=== PATIENT | male | born 1965 | race Caucasian/White ===

== ENCOUNTER 2023-10-24 01:48 | Inpatient (IN) ==
--- NOTE | 2023-10-24 02:09 | Emergency Department Note ---
Impression & Plan Unstable angina, Acute electrocardiography changes ED Provider Note Name: BRENNEN ARCE Age: 58 Sex: Male Arrives Via: Walk-In Informant: Patient ED Provider: Domo Shafer MD Chief Complaint: Chest pain Impression: As per impressions above Medical Decision Making: Pleasant 58-year-old gentleman with a history of hypertension arrives for evaluation of upper substernal chest discomfort without significant radiation but is associated with diaphoresis. He is not short of breath no palpitations no nausea, vomiting or other concerning signs or symptoms. No recent travel or leg swelling to be concern for PE. Chest pain is not consistent with dissection and chest x-ray is without widened mediastinum. Initial EKG concerning for T wave inversions anteriorly. Given aspirin and nitro on arrival with improvement in chest pain. Repeat EKG reveals new left bundle branch block. No previous EKGs for comparison. Discussed this emergently with interventional cardiology. Given patient's resolution of chest pain we will hold on [place] at this time. Initial troponin and other labs are reassuring. I discussed with hospitalist and plan to bring in for further cardiac evaluation. Given concerns for unstable angina and dynamic EKG changes heparin was started. Of note patient's oxygen started trending down some. This was discussed at length with hospitalist and they plan to further investigate. Triage/Nursing Notes reviewed by Me Differential:Cardiac ischemia, aortic dissection, pulmonary embolism, pneumothorax, pneumonia, pericarditis, myocarditis, esophageal rupture, GERD, cholecystitis, pancreatitis, musculoskeletal, as well as other pathologies. Vital Signs: reviewed and remarkable for HTN Interventions: Sublingual nitroglycerin, aspirin 324 mg p.o., heparin bolus and drip Labs:ED labs Reviewed by me and remarkable for no significant abnormalities Imagin view chest x-ray as per my interpretation no significant effusion, widened mediastinum nor infiltrate appreciated. EKG #1 as per my interpretation. Indication chest pain. Sinus bradycardia 50 bpm with QTc of 432. There is no ectopy. Anterior T wave inversions. No previous EKG for comparison. EKG #2. As per my interpretation. Indication dynamic changes on monitor. Normal sinus rhythm at 63 bpm QTc of 483. Left bundle branch block. No ectopy. When compared to EKG from earlier in stay left bundle branch is new. Cardiac/Tele Monitoring: Cardiac Monitoring: An Order was placed for continuous cardiac monitoring. The monitor shows a rate of 60 with a normal sinus rhythm. Consults:Dr Narayanan of interventional cardiology. Discussed case over phone reviewed EKG and plan for continued monitoring without emergent cath if patient remains pain-free. [facility] Discussed case with him and they will plan to bring inpatient for further management. Plan: Disposition:Hospitalization. Condition: Good History of Present Illness: Pleasant 58-year-old gentleman arrives for the evaluation of chest pain. Patient notes he felt fine when he went to bed this evening. Around 1:30 AM awoke with not feeling well. Associated with diaphoresis and a lightheadedness and a tight feeling in his upper mid chest. He notes he tried burping several times without improvement. Due to worsening discomfort he arrives to the ER for evaluation. Patient denies any radiation to his arms back neck or abdomen. He has no palpitations, nausea, vomiting, shortness of breath. He denies any recent travel or swelling in his legs. He said no recent fevers, chills, syncope. He denies any recent trauma injury. Patient is on blood pressure medication which was recently increased. Denies any familial history of cardiac disease nor he himself having cardiac disease. He does not smoke or use alcohol. He has never had any reflux issues previously. Past Medical History: Hypertension Home Medications: Olmesartan Allergies: No known drug allergies Vitals:Blood Pressure: 184/102, Pulse 54, RR 18, T 36.6C, O2 95% on RA Physical Exam: GENERAL: Patient is uncomfortable appearing and in mild distress. RESPIRATORY: No dyspnea. Clear to auscultation and equal bilaterally. CARDIOVASCULAR: Regular rate and rhythm.No murmur appreciated. GASTROINTESTINAL: Abdomen soft, non-tender, no peritonitis. EXTREMITIES: Normal motion all extremities, no cyanosis, no edema. NEUROLOGIC: Alert and oriented. No focal neurologic deficits appreciated SKIN: No rash, no jaundice, no diaphoresis. PSYCH: Appropriate GCS: 15 ED Course: Times/Reassessments: Patient has resolution of chest pain with nitroglycerin. EKG does show dynamic changes But he is now chest pain-free. Critical Care: I have personally spent 35 minutes of critical care time in the direct management of this patient. ACS with dynamic EKG changes, starting heparin and discussion with consultants determining if need for emergency heart cath. This was a life/limb threatening event. This 35 minutes is in excess of all separately billable procedures. Domo Shafer MD Past Med/Surg History Problem List (Updated 10/24/23 @ 04:32 by Pretty Perez DO) Chest pain Hypertension Left bundle branch block Acute electrocardiography changes (Acute) Unstable angina (Acute) Social History Smoking Status: Never smoker Preferred Language: Grenadian Feels Safe at Home: Yes Results & Data (ED) Vital Signs Vital Signs - 24 hr 10/24/23 01:52 10/24/23 01:58 10/24/23 01:59 Temperature 36.6 C Temperature Source Temporal Artery Scan Pulse Rate 54 L 52 L 54 L Pulse Rate [Apical] Pulse Rate from SpO2 Sensor Pulse Rhythm [Apical] Pulse Strength [Apical] Respiratory Rate 18 Respiratory Effort / Characteristics Respiratory Depth Respiratory Pattern Blood Pressure 184/102 H Blood Pressure [Left Arm] Blood Pressure Mean 129 Blood Pressure Mean [Left Arm] Blood Pressure Position [Left Arm] Pulse Oximetry 95 Oxygen Delivery Method Room Air Oxygen Flow Rate Sepsis Recent Fever Within 48 Hours No Sepsis New/Unexplained Change in Mental Status No Sepsis Action Taken by Nursing No Action Required Oxygen Flow Rate - Titration Pulse Oximetry Post Tiitration 10/24/23 02:00 10/24/23 02:02 10/24/23 02:12 Temperature Temperature Source Pulse Rate 52 L 55 L Pulse Rate [Apical] Pulse Rate from SpO2 Sensor 57 L Pulse Rhythm [Apical] Pulse Strength [Apical] Respiratory Rate 12 11 L Respiratory Effort / Characteristics Respiratory Depth Respiratory Pattern Blood Pressure 168/91 H Blood Pressure [Left Arm] Blood Pressure Mean 121 Blood Pressure Mean [Left Arm] Blood Pressure Position [Left Arm] Pulse Oximetry 94 Oxygen Delivery Method Oxygen Flow Rate Sepsis Recent Fever Within 48 Hours Sepsis New/Unexplained Change in Mental Status Sepsis Action Taken by Nursing Oxygen Flow Rate - Titration Pulse Oximetry Post Tiitration 10/24/23 02:27 10/24/23 02:31 10/24/23 02:33 Temperature Temperature Source Pulse Rate 74 Pulse Rate [Apical] 64 Pulse Rate from SpO2 Sensor 66 Pulse Rhythm [Apical] Pulse Strength [Apical] Respiratory Rate 20 Respiratory Effort / Characteristics Respiratory Depth Respiratory Pattern Blood Pressure 160/94 H Blood Pressure [Left Arm] 168/91 H Blood Pressure Mean 129 Blood Pressure Mean [Left Arm] 116 Blood Pressure Position [Left Arm] Pulse Oximetry 94 95 Oxygen Delivery Method Room Air Oxygen Flow Rate Sepsis Recent Fever Within 48 Hours Sepsis New/Unexplained Change in Mental Status Sepsis Action Taken by Nursing Oxygen Flow Rate - Titration Pulse Oximetry Post Tiitration 10/24/23 02:45 10/24/23 02:45 10/24/23 03:04 Temperature Temperature Source Pulse Rate 67 70 Pulse Rate [Apical] Pulse Rate from SpO2 Sensor Pulse Rhythm [Apical] Pulse Strength [Apical] Respiratory Rate Respiratory Effort / Characteristics Respiratory Depth Respiratory Pattern Blood Pressure Blood Pressure [Left Arm] Blood Pressure Mean Blood Pressure Mean [Left Arm] Blood Pressure Position [Left Arm] Pulse Oximetry 88 L 93 87 L Oxygen Delivery Method Room Air Nasal Cannula Room Air Oxygen Flow Rate 3 Sepsis Recent Fever Within 48 Hours Sepsis New/Unexplained Change in Mental Status Sepsis Action Taken by Nursing Oxygen Flow Rate - Titration 3 Pulse Oximetry Post Tiitration 97 10/24/23 04:00 10/24/23 05:00 Temperature Temperature Source Pulse Rate Pulse Rate [Apical] 59 L 73 Pulse Rate from SpO2 Sensor Pulse Rhythm [Apical] Regular Regular Pulse Strength [Apical] Normal Normal Respiratory Rate 18 18 Respiratory Effort / Characteristics Non-Labored Spontaneous Non-Labored Spontaneous Respiratory Depth Normal Normal Respiratory Pattern Regular Regular Blood Pressure Blood Pressure [Left Arm] 172/96 H 170/93 H Blood Pressure Mean Blood Pressure Mean [Left Arm] 121 118 Blood Pressure Position [Left Arm] Lying Lying Pulse Oximetry 97 94 Oxygen Delivery Method Nasal Cannula Room Air Oxygen Flow Rate 3 Sepsis Recent Fever Within 48 Hours Sepsis New/Unexplained Change in Mental Status Sepsis Action Taken by Nursing Oxygen Flow Rate - Titration Pulse Oximetry Post Tiitration Laboratory Data 10/24/23 02:01 10/24/23 02:01 Lab Results 10/24/23 10/24/23 10/24/23 Range/Units 02:00 02:01 03:55 WBC 6.80 (4.8-10.8) K/ul RBC 4.89 (4.70-6.10) M/uL Hgb 14.0 (14.0-18.0) g/dl Hct 42.6 (42.0-52.0) % MCV 87.1 (80.0-100.0) fL MCH 28.6 (25.0-34.0) pg MCHC 32.9 (32.0-36.0) g/dL RDW Std Deviation 42.7 (36.4-46.3) fL RDW Coeff of Cris 13.5 (11.5-14.5) % Plt Count 181 (130-400) K/uL MPV 10.7 (9.4-12.4) fL Immature Gran % (Auto) 0.1 % Neut % (Auto) 49.0 % Lymph % (Auto) 35.7 % [place] % (Auto) 13.5 % Eos % (Auto) 1.3 % Baso % (Auto) 0.4 % Neut # (Auto) 3.32 (1.40-6.50) K/uL Lymph # (Auto) 2.43 (1.20-3.40) K/uL [place] # (Auto) 0.92 H (0.11-0.59) K/uL Eos # (Auto) 0.09 (0.00-0.50) K/uL Baso # (Auto) 0.03 (0.00-0.20) K/uL Immature Gran # (Auto) 0.01 (0.01-0.20) K/uL PT 10.6 (9.0-12.0) Seconds INR 1.0 (0.9-1.1) APTT 26 (21-31) Seconds PTT Ratio 1.0 D-Dimer 820 H* (0-500) ug/L FEU Sodium 140 (136-145) mmol/L Potassium 3.6 (3.5-5.1) mmol/L Chloride 104 (98-107) mmol/L Carbon Dioxide 30 (21-32) mmol/L Anion Gap 6 (3-11) BUN 23 (6-23) mg/dl Creatinine 1.01 (0.6-1.4) mg/dl Est Cr Clr Drug Dosing 98.0 ml/min Est GFR ( Amer) 93.9 ml/min Est GFR (Non-Af Amer) 81.0 ml/min BUN/Creatinine Ratio 22.8 H (10-20) Glucose 112 H (70-99(Fasting)) mg/dl Calcium 9.1 (8.6-10.3) mg/dl Magnesium 2.2 (1.7-2.4) mg/dl Total Bilirubin 0.4 (0.2-1.0) mg/dl AST 26 (13-39) U/L ALT 24 (7-52) U/L Alkaline Phosphatase 57 (34-104) U/L Troponin I High Sens 11.6 138.8 H* D (0-20) pg/ml Total Protein 7.1 (6.0-8.3) gm/dl Albumin 4.4 (3.4-5.0) gm/dl Globulin 2.7 (2.5-4.0) gm/dl Albumin/Globulin Ratio 1.6 (0.9-2) Lipase 29 (11-82) U/L Lyme Disease Screen Negative (Negative) Administered Medications Heparin Sodium/Dextrose (Heparin Sodium/Dextrose) 25,000 units in 500 mls @ 20 mls/hr IV .Q24H [facility]; Protocol Stop: 11/23/23 03:44 Last Admin: 10/24/23 03:53 Dose: 1,000 units/hr, 20 mls/hr Documented By: SMILEY Co-signed By: AB Discontinued Medications Aspirin (Aspirin 81 Mg Chew) 324 mg PO NOW STA Stop: 10/24/23 02:07 Last Admin: 10/24/23 02:10 Dose: 324 mg Documented By: AB Heparin Sodium (Porcine) (Heparin Sod (Porcine) 1000 Unit/Ml) 4,000 units IV NOW ONE Stop: 10/24/23 03:46 Last Admin: 10/24/23 03:39 Dose: 4,000 units Documented By: SMILEY Co-signed By: AB Sodium Chloride (Nss) 1,000 mls @ 999 mls/hr IV .Q1H1M STA Stop: 10/24/23 02:57 Last Infusion: 10/24/23 03:49 Dose: Infused Documented By: Admin: 10/24/23 02:14 Dose: 999 mls/hr Documented By: AB Potassium Chloride (K [place] / Wtr) 10 meq in 100 mls @ 100 mls/hr IV ONE ONE Stop: 10/24/23 04:53 Last Admin: 10/24/23 05:01 Dose: 100 mls/hr Documented By: SMILEY Ioversol (Optiray 320 125ml) 125 ml IV ONCE ONE Stop: 10/24/23 05:56 Last Admin: 10/24/23 05:56 Dose: 118 ml Documented By: MARIO Nitroglycerin (Nitroglycerin Sl 0.4 Mg/Tab Tab) 0.4 mg SL NOW STA Stop: 10/24/23 02:07 Last Admin: 10/24/23 02:11 Dose: 0.4 mg Documented By: MED Nitroglycerin (Nitroglycerin Sl 0.4 Mg/Tab Tab) 0.4 mg SL NOW STA Stop: 10/24/23 02:54 Last Admin: 10/24/23 02:40 Dose: 0.4 mg Documented By: MED Discharge Plan Visit Data Chief Complaint: Chest Pain Stated Complaint: CHEST PAIN, RECENTLY CHANGED MEDICATIONS ED Provider: Domo Shafer Discharge Problem: Unstable angina, Acute electrocardiography changes Patient Disposition: Admitted As Inpatient Discharge Instructions Interventions: ED Discharge Assessment Last Done: 10/24/23 05:40 Forms Stand Alone Forms: My [facility] Referrals Referrals: PCP,NO [Physician] -
[2023-10-24] MEDS: ASPIRIN 81 MG CHEW PO STA (02:10)
[2023-10-24] MEDS: NITROGLYCERIN SL 0.4 MG/TAB TAB SL STA ×2 (02:11→02:40)
[2023-10-24] MEDS: SODIUM CHLORIDE 0.9% 1,000 ML IV STA (02:14)
[2023-10-24 02:30] LABS: Basophils # (auto) 0.03 K/uL (0.00-0.20); Basophils % (auto) 0.4 %; Eosinophils # (auto) 0.09 K/uL (0.00-0.50); Eosinophils % (auto) 1.3 %; Hematocrit (blood only) 42.6 % (42.0-52.0); Immature Granulocytes # (auto) 0.01 K/uL (0.01-0.20); Immature Granulocytes % (auto) 0.1 %; Lymphocytes # (auto) 2.43 K/uL (1.20-3.40); Lymphocytes % (auto) 35.7 %; Mean Corpuscular Hemoglobin 28.6 pg (25.0-34.0); Mean Corpuscular Hgb Conc 32.9 g/dL (32.0-36.0); Mean Corpuscular Volume 87.1 fL (80.0-100.0); Mean Platelet Volume 10.7 fL (9.4-12.4); Monocytes # (auto) 0.92 K/uL (0.11-0.59); Monocytes % (auto) 13.5 %; Neutrophils # (auto) 3.32 K/uL (1.40-6.50); Platelet Count 181 K/uL (130-400); RDW Coefficient of Variation 13.5 % (11.5-14.5); RDW Standard Deviation 42.7 fL (36.4-46.3); Red Blood Count 4.89 M/uL (4.70-6.10)
[2023-10-24 02:37] LABS: Partial Thromboplastin Time 26 Seconds (21-31); Prothrombin Time 10.6 Seconds (9.0-12.0)
[2023-10-24 02:50] LABS: Albumin Globulin Ratio 1.6 (0.9-2); Albumin Level 4.4 gm/dl (3.4-5.0); BUN Creatinine Ratio 22.8 (10-20); Bilirubin,Total 0.4 mg/dl (0.2-1.0); Calcium 9.1 mg/dl (8.6-10.3); Est GFR (African American) 93.9 ml/min; Globulin 2.7 gm/dl (2.5-4.0); Potassium 3.6 mmol/L (3.5-5.1); Total Protein 7.1 gm/dl (6.0-8.3)
[2023-10-24 02:56] LABS: Troponin I High Sensitivity 11.6 pg/ml (0-20)
[2023-10-24] MEDS ORDERED: HEPARIN SOD (PORCINE) 1000 UNIT/ML IV ONE (03:19)
[2023-10-24] MEDS ORDERED: HEPARIN SODIUM/DEXTROSE 25,000 UNITS/500 ML BAG IV SCH (03:30)
[2023-10-24] MEDS: HEPARIN SOD (PORCINE) 1000 UNIT/ML IV ONE ×2 (03:39→12:07)
[2023-10-24 03:53] LABS: Magnesium 2.2 mg/dl (1.7-2.4)
[2023-10-24] MEDS: HEPARIN SODIUM/DEXTROSE 25,000 UNITS/500 ML BAG IV SCH (03:53)
[2023-10-24] MEDS ORDERED: ACETAMINOPHEN 325 MG TAB PO PRN (04:06)
[2023-10-24] MEDS ORDERED: ONDANSETRON INJ 2 MG/ML 2 ML VIAL IV PRN (04:06)
[2023-10-24] MEDS ORDERED: MELATONIN 3 MG TAB PO PRN (04:06)
--- NOTE | 2023-10-24 04:10 | History & Physical Report ---
Date of Service October 24, 2023 Assessment & Plan (1) Chest pain: Plan: Pt is a 58 yo male with PMH of HTN presenting d/t chest pain. Chest pain - pt with sudden onset of chest pain during sleep; no hx of previous NH/ACS - first EKG showing NSR w/ mild ST segment elevations in the inferior leads and T wave inversions in anterolateral leads; repeat EKGs showing LBBB and resolution of ST/T changes - pt has hx of LBBB on prior EKGs including one from outpatient records 09/2023 and per pt back in 2021 prior to a colonoscopy - ER discussed case with interventional cardiology who decided to hold on cath d/t resolution of pt's chest pain - CXR WNL - lab work significant for no leukocytosis, Hgb 14, plts 181, K 3.6, Cr 1.01, and lyme screen neg - D dimer elevated to 820; CTA PE protocol ordered - trop increased from 11 to 138; continue to trend trop to peak - heparin drip started in ED; continue upon admission - cardio consulted for further eval/possible intervention depending on symptom progression HTN - continue formulary equivalent losartan 100 mg daily of pt's home med (olmesartan 40 mg daily) - per outpatient notes, pt also started on amlodipine 5 mg daily; however, pt is not aware of this medication - recommend clarification concerning pt's BP regimen Diet: NPO until further eval by cardio in case of urgent cath Code: full VTE ppx: heparin drip Dispo: admit to PCU (2) Left bundle branch block: (3) Hypertension: History of Present Illness Chief Complaint: chest pain Primary Care Provider: Mone Saleh DO Pt is a 58 yo male with PMH of HTN presenting d/t chest pain. Pt notes he awoke from sleep feeling feverish and with chest pain. He describes the chest pain as being central and near the bottom of this throat. It did not radiate anywhere and came with no associated symptoms (SOB, N/V, abdominal pain, lightheadedness/dizziness). He waited a few minutes to see if it would pass and when it didn't he decided to come to the ER. He has been following with his PCP for HTN and his BP medication was recently changed (increased from 20mg olmesartan to 40mg). He was instructed by his PCP to come to the ER if he experienced any chest pain. He has never had chest pain before. He denies any heart history aside from a known LBBB. He does note that both his father and a cousin on his father's side have had abdominal aortic aneurysms. However, he notes they both smoked and he does not. In the ER, pt was given aspirin 324mg, nitro x2, 1L NS, and started on a heparin drip. His chest pain resolved and has not recurred since receiving these medications. Allergies Allergy/AdvReac Type Severity Reaction Status Date / Time No Known Allergies Allergy Unverified 10/24/23 06:31 Past Med/Surg History Problem List (Updated 10/24/23 @ 04:32 by Pretty Perez, ) Chest pain Hypertension Left bundle branch block Acute electrocardiography changes (Acute) Unstable angina (Acute) Social History Smoking Status: Never smoker Preferred Language: Brazilian Feels Safe at Home: Yes Review of Systems Review of Systems: As per HPI Physical Exam Constitutional: NAD, vitals WNL aside from hypertension. Respiratory: CTA bilaterally. Non labored breathing. No rhonchi, wheezing, or crackles. Cardiovascular: RRR. 2/6 systolic murmur noted. No LE edema. Gastrointestinal (Abdomen): Nontender, +BS. No masses noted. Skin: No rashes or skin lesions noted. Neurologic: Sensation grossly intact. No FND appreciated. Psychiatric: Speech of normal pace and content. Mood and affect congruent. Results & Data Results & Data Vital Signs (Past 12 Hours) Vital Signs Temp Pulse Pulse Resp BP BP Pulse Ox 10/24/23 03:04 87 L 10/24/23 02:45 70 93 10/24/23 02:45 67 88 L 10/24/23 02:33 160/94 H 10/24/23 02:31 64 20 168/91 H 95 10/24/23 02:27 74 94 10/24/23 02:12 55 L 11 L 94 10/24/23 02:02 168/91 H 10/24/23 02:00 52 L 12 10/24/23 01:59 54 L 10/24/23 01:58 52 L 10/24/23 01:52 36.6 C 54 L 18 184/102 H 95 O2 Del Method O2 Flow Rate 10/24/23 03:04 Room Air 10/24/23 02:45 Nasal Cannula 3 10/24/23 02:45 Room Air 10/24/23 02:33 10/24/23 02:31 Room Air 10/24/23 02:27 10/24/23 02:12 10/24/23 02:02 10/24/23 02:00 10/24/23 01:59 10/24/23 01:58 10/24/23 01:52 Room Air Supervising Physician Co-Signing Physician Notes Attending addendum: I have physically seen this patient, have supervised the medical residents activities, and agree with the H&P unless as otherwise noted. Assessment and Plan: Chest pain/elevated troponin/NSTEMI/dynamic EKG changes- Patient was referred to the emergency department from outpatient office with report of EKG abnormality Upon arrival to the emergency department, initial EKG showed [address] segment elevation in lead III, and T wave inversions in anterior lateral chest leads. With this EKG he had symptoms of chest pressure. Patient was captured on rhythm strip to convert from normal sinus rhythm with normal QRS complex to normal sinus rhythm with left bundle branch block rate controlled. With this EKG he had no symptoms Patient remained in normal sinus rhythm with left bundle branch block the remainder of the time in the ED Recommendation was to start patient on heparin drip protocol with bolus, which was started His initial troponin was 11.6, and follow-up was 138.8. D-dimer was elevated at 820, and the patient is being sent for CTA chest, and CT aorta study due to family history of aortic aneurysm. Potassium was 3.6, and will be given potassium chloride 10 mill equivalent IV rider x 1 Lyme test is negative Review of EKGs from [facility] PCP reveal left bundle branch block is present at least back through September 2023, and possibly 04/29/2021 Patient's lowest pulse ox was 87% on room air, and increased to 94% on 2 L nasal cannula oxygen Patient reports that his home olmesartan was increased from 20 to 40 mg at the outpatient office today. There is also note that amlodipine 5 mg was added, however, patient does not have this medication Interventional cardiology Dr. Narayanan is aware, and will see the patient in the a.m., unless there is an acute need to be seen sooner Resident Activity Tracking Resident Involvement: Resident Care Provided Care Provided: Adult [facility] Medicine
[2023-10-24 04:44] LABS: D Dimer 820 ug/L FEU (0-500)
[2023-10-24] MEDS: POTASSIUM CHLORIDE / WTR 10 MEQ/100 ML PLCT IV ONE (05:01)
[2023-10-24] MEDS: OPTIRAY 320 125ml IV ONE (05:56)
[2023-10-24] MEDS: Patient's ALLERGY Info needs ENTERED STA (06:31)
--- NOTE | 2023-10-24 06:38 | Billing Data ---
Date of Service October 24, 2023 Coding Level of Care Code 33265 INT INP/OBS CARE
[2023-10-24] MEDS: Heparin IV Adult Wt-Based Low-Dose w/ INITIAL Bolus Protocol IV STA (06:53)
--- NOTE | 2023-10-24 06:59 | CT Scan Report ---
CT angio chest PE protocol CLINICAL HISTORY: PE TECHNIQUE: Multidetector row helical CT of the chest was performed with angiographic protocol. Lu l and sagittal reformations were obtained. Coronal and sagittal MIPS were obtained from the axial papa a set and were submitted for review. Automated dose lowering techniques and/or adjustment according to patient size were utilized for this exam. CT DOSE: 916.25 mGy.cm Comparison: Comparison is made to chest radiograph 10/24/2023 FINDINGS: Lungs and pleura: There is a 6 mm nodule in the right upper lobe (series 4 image 105). Heart and pericardium: Heart size is normal. No pericardial effusion. Vessels: No evidence of pulmonary embolism. Mediastinum and elmer: Unremarkable. Chest wall and lower neck: Unremarkable. Abdomen: Unremarkable. Bones: Mild degenerative changes are seen in the spine. IMPRESSION: No acute abnormality and in particular no evidence of pulmonary embolus. ACT 112: Negative or not required by law. Electronically signed by: Ramy Forman M.D. 10/24/2023 6:57 AM
--- NOTE | 2023-10-24 07:39 | XRay Report ---
XR chest 1V portable HISTORY: Chest pain, nonspecific COMPARISON: None. FINDINGS: No pneumothorax. No pleural effusions. The cardiac silhouette is mildly enlarged. The lungs are clear. No evidence for pulmonary edema. No acute fractures. IMPRESSION: Mild cardiomegaly. Otherwise, no acute process within the chest. ACT 112: Negative or not required by law. Electronically signed by: Olaf Callahan M.D. 10/24/2023 7:37 AM
[2023-10-24] MEDS: LOSARTAN POTASSIUM 50 MG TAB PO SCH (08:22)
--- NOTE | 2023-10-24 08:50 | Cardiology Consultation ---
Date of Consultation October 24, 2023 Assessment & Plan (1) ACS (acute coronary syndrome): Presentation consistent with high risk ACS and recommend proceeding with cardiac catheterization and possible PCI later today. Please keep NPO. No apparent contraindications to procedure. Discussed risks, benefits, alternatives of procedure with patient and they are willing to proceed. Patient on heparin infusion. Will load with ticagrelor 180 mg. Continue home losartan. Will start statin. Echocardiogram this morning. Further recommendations pending findings of coronary angiography. History of Present Illness Attending Physician: Ramu Bell DO History of Present Illness Mr. Alex is a very pleasant 58-year-old man here with acute chest pain, elevated troponin and ECG concerning for high risk ACS. No prior cardiac history. Cardiac risk factors include hypertension, suspected sleep apnea. Chest pain began approximately 1 AM last night waking from sleep. Presented to [facility] ED approximately 30 minutes later. Describes substernal pain with associated nausea. Denies similar symptoms in the past. Initial ECG showed sinus rhythm with anterior T wave inversions. Subsequent ECG showed new left bundle branch block. Hypertensive now on arrival to the 180s. Ongoing chest pain on arrival but was given sublingual nitroglycerin with resolution of chest pain. Chest pain since that time has not recurred. This morning feeling well with no complaints. HS TropI initially 11, up to 138. Chest CTA negative for PE. On my review minimal coronary calcification. Family history: Father and grandfather both had AAA's, were active smokers. No history of premature CAD. Social history: Non-smoker. . 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 Allergies Allergy/AdvReac Type Severity Reaction Status Date / Time No Known Allergies Allergy Unverified 10/24/23 06:31 Patient History Social History Smoking Status: Never smoker Hx Alcohol Use: No Hx Substance Use: No Preferred Language: Hungarian Communication Ability: Effective Administration Vice President Required: No Beliefs That Will Affect Care: None Current Living Situation: Alone Other Information That Helps Us Care for You: No Feels Safe at Home: Yes Safety Concerns: Feels Safe At This Time Assistive Devices: None Review of Systems Review of Systems: All systems reviewed & are unremarkable except as noted in HPI & below Physical Exam Physical Exam: General: Comfortable HEENT: Sclerae anicteric Lungs: Clear to auscultation bilaterally, no crackles or wheezes Cardiac: Regular rate and rhythm, 2 out of 6 systolic ejection murmur Vascular: 2+ radial Abdomen: Soft, nontender Extremities: Well perfused, no peripheral edema Neuro: Nonfocal Psych: Alert orient x3, normal affect and mood Results & Data Vital Signs (Past 12 Hours) Vital Signs Temp Pulse Pulse Resp BP BP BP 10/24/23 07:06 98.1 F 67 20 157/92 H 10/24/23 06:00 10/24/23 06:00 98.1 F 67 16 158/85 H 10/24/23 05:00 73 18 170/93 H 10/24/23 04:00 59 L 18 172/96 H 10/24/23 03:04 10/24/23 02:45 70 10/24/23 02:45 67 10/24/23 02:33 160/94 H 10/24/23 02:31 64 20 168/91 H 10/24/23 02:27 74 10/24/23 02:12 55 L 11 L 10/24/23 02:02 168/91 H 10/24/23 02:00 52 L 12 10/24/23 01:59 54 L 10/24/23 01:58 52 L 10/24/23 01:52 97.9 F 54 L 18 184/102 H Pulse Ox O2 Del Method O2 Flow Rate 10/24/23 07:06 92 Room Air 10/24/23 06:00 Room Air 10/24/23 06:00 95 Room Air 10/24/23 05:00 94 Room Air 10/24/23 04:00 97 Nasal Cannula 3 10/24/23 03:04 87 L Room Air 10/24/23 02:45 93 Nasal Cannula 3 10/24/23 02:45 88 L Room Air 10/24/23 02:33 10/24/23 02:31 95 Room Air 10/24/23 02:27 94 10/24/23 02:12 94 10/24/23 02:02 10/24/23 02:00 10/24/23 01:59 10/24/23 01:58 10/24/23 01:52 95 Room Air PG Care Time/CCT Total # of Minutes Spent Total Time Spent with Patient: Total time spent is greater than 50% in coordination of care (as documented) at patient's floor/unit and/or counseling patient: Coding Level of Care Code 84764 IN/OBS CONSULT LVL 4,60M Diagnoses ACS (acute coronary syndrome) I24.9
[2023-10-24] MEDS ORDERED: CLOPIDOGREL BISULFATE 75 MG TAB PO SCH (09:00)
[2023-10-24] MEDS: TICAGRELOR 90 MG TAB PO ONE (09:32)
[2023-10-24] MEDS: ASPIRIN 81 MG ECTAB PO SCH (09:32)
--- OUTSIDE RECORDS SUMMARY | 2023-10-24 10:51 | External Medical Summary | Continuity of Care Document ---
Author Name Unknown Organization [facility] [address] Address [address] [place], [place] [id number] Care Team Providers Care Armor Officer Name Role Phone Markell Arechiga Primary Care Physician [phone] Encounter [facility] [id number] Date(s): 09/26/23 - 09/26/[address] [facility] [address] [facility] [address] [facility], [facility] [address] [place], [place] [phone] Encounter Diagnosis Encounter for screening for malignant neoplasm of prostate(Final) - Essential (primary) hypertension(Final) - Obstructive sleep apnea (adult) (pediatric)(Final) - Body mass index [BMI] 35.0-35.9, adult(Final) - Discharge Disposition: Home or Self Care Attending Physician: DO Saleh Allison B Referring Physician: DO Saleh Allison B Allergies, Adverse Reactions, Alerts No Known Allergies Immunizations Given and Recorded Vaccine Date Status Refusal Reason zoster vaccine, inactivated 02/27/22 Recorded SARS-CoV-2 mRNA-1273 (6y+ bivalent) 02/27/22 Recor ded SARS-CoV-2 (COVID-19) mRNA-1273 vaccine 1 07/13/21 Recorded SARS-CoV-2 (COVID-19) mRNA-1273 vaccine 2 01/31/21 Recorded SARS-CoV-2 (COVID-19) mRNA-1273 vaccine 07/13/20 R ecorded SARS-CoV-2 (COVID-19) mRNA-1273 vaccine 06/15/20 R ecorded influenza virus vaccine, inactivated 12/18/19 Tavon rded influenza virus vaccine, inactivated 01/09/19 Tavon rded 1Result Comment: 2021-07-16: Historical information-source unspecified 2Result Comment: 2021-02-02: Historical information-source unspecified Medications [facility] Start: 05/26/14 8:36:00 AM EDT, 1 tab, PO, Daily Start Date: 05/26/14 Status: Ordered Chondroitin-Glucosamine Start: 05/26/14 8:37:00 AM EDT, 1 cap, PO, Daily Start Date: 05/26/14 Status: Ordered Nature's Bounty Red Krill Oil Start: 05/26/14 8:37:00 AM EDT, 1,000 mg =, PO, bid Start Date: 05/26/14 Status: Ordered olmesartan 20 mg oral tablet Start: 09/25/23 9:38:00 AM EDT, 1 tab, PO, Daily, Disp# 30 tab, Refills: 1, Pharmacy: [id number] Start Date: 09/25/23 Stop Date: 11/24/23 Status: Ordered Osteo Bi-Flex Start: 05/26/14 8:37:00 AM EDT Start Date: 05/26/14 Status: Ordered Problem List Condition Confirmation Course Effective Dates Status Health St atus Informant Witnessed apneic spells Confirmed Active Family history of aortic aneurysm Confirmed Active Murmur Confirmed Active HTN (hypertension) Confirmed Active LBBB (left bundle branch block) Confirmed Active Lesion of nose Confirmed Active Body mass index [BMI] 35.0-35.9, adult Confirmed Active EMILY (obstructive sleep apnea) Confirmed Active Screening PSA (prostate specific antigen) Confirmed Active Colon polyp Confirmed Active Snoring Confirmed Active Procedures Procedure Date Related Diagnosis Body Site Status Arthroscopy of knee 01/26/15 Compl eted Colonoscopy 1 04/13/13 Completed Fracture care Completed Left ankle Completed 1next exam due in 3 years Results Laboratory List Name Date Complete Blood Count w Differential (CBC ,DIFFH) 09/26/23 Comprehensive Metabolic Panel (COMP META B PANEL) 09/26/23 Hemoglobin A1C (HEMOGLOBIN, A1C) 09/26/23 Lipid Profile (LIPOPROTEINS) 09/26/23 Microalbumin, Urine, Random (MICROALBUMI N, RD UR) 09/26/23 Prostate Specific Antigen (PSA, TOTAL) Thyroid Stimulating Hormone (TSH) 4 Urine Analysis w/ Reflexed Microscopic. (URINE W/REFLEX MICR) 09/26/23 Most recent to oldest [Reference Range]: 1 eGFR CKD-EPI [>60 mL/min/1.73 m2] 84 mL/ min/1.73 m2 1 (09/26/23 7: AM) Estimated Average Glucose 117 mg/dL 2 (09/26/23 7: AM) Non-HDL 167 mg/dL 3 (09/26/23 7:22 AM) PSA, Total [<3.51 ng/mL] 0.31 ng/mL (09/26/23 7: AM) Estimated CrCl 109.06 mL/min (09/26/23 11:20 AM) MPV [9.0-12.2 fL] 11.0 fL (09/26/23 7: AM) Immature Gran% 0.6 % (09/26/23 7: AM) Neut% 52.5 % (09/26/23 7: AM) Lymph% 34.5 % (09/26/23 7: AM) [place]% 10.5 % (09/26/23 7: AM) Baso% 0.6 % (09/26/23 7: AM) Eos% 1.3 % (09/26/23 7:22 AM) Immat Gran, Abs [0-0.4 K/uL] 0.03 K/uL (09/26/23 7: AM) Neut, Abs [2.0-7.7 K/uL] 2.81 K/uL (09/26/23 7:22 AM) Lymph, Abs [1.0-3.4 K/uL] 1.84 K/uL (09/26/23 7:22 AM) [place], Abs [0-1.0 K/uL] 0.56 K/uL (09/26/23 7:22 AM) Baso, Abs [0-0.1 K/uL] 0.03 K/uL (09/26/23 7:22 AM) Eos, Abs [0-0.5 K/uL] 0.07 K/uL (09/26/23 7: AM) Type of Diff: AUTO *Unknown* (09/26/23 7: AM) RDW [11.5-14.2 %] 13.8 % (09/26/23 7: AM) Micro Alb (u) [<2.00 mg/dL] 1.87 mg/dL 4 (09/26/23 7: AM) Anion Gap [5-14 mmol/L] 7 mmol/L (09/26/23 7: AM) Alb [3.5-5.0 g/dL] 4.5 g/dL (09/26/23 7: AM) Alk Phos [38-126 unit/L] 59 unit/L (09/26/23 AM) ALT [<50 unit/L] 37 unit/L (09/26/23 7: AM) AST [15-46 unit/L] 49 unit/L *HI* (09/26/23 AM) Bili (u) [NEG] NEGATIVE *Unknown* (09/26/23 AM) BUN [7-20 mg/dL] 28 mg/dL *HI* (09/26/23: AM) Ca [8.4-10.2 mg/dL] 8.8 mg/dL (09/26/23: AM) Chol/HDL 5 (09/26/23: AM) Chol [125-200 mg/dL] 210 mg/dL *HI* (09/26/23: AM) Cl- [96-107 mmol/L] 108 mmol/L *HI* (09/26/23 AM) HCO3 [22-30 mmol/L] 26 mmol/L (09/26/23: AM) Cret [0.70-1.30 mg/dL] 1.03 mg/dL (09/26/23: AM) HbA1c [4.0-6.0 %] 5.7 % (09/26/23: AM) Glu [74-106 mg/dL] 95 mg/dL (09/26/23: AM) Hct [39-48 %] 45.1 % (09/26/23: AM) HDL [>35 mg/dL] 43 mg/dL (09/26/23 7: AM) Hgb [13.0-17.0 g/dL] 14.7 g/dL (09/26/23 AM) K [3.5-5.1 mmol/L] 4.1 mmol/L (09/26/23 7:22 AM) Ketones [NEG mg/dL] NEGATIVE mg/dL (09/26/23 AM) LDL Chol, Calculated [50-130 mg/dL] 150 mg/dL *HI* (09/26/23 AM) Leuk Est [NEG] NEGATIVE 5 *Unknown* (09/26/23 AM) Micro Alb Ratio [<20 ug/mg cret] 12 ug/m g cret (09/26/23: AM) MCH [28-33 pg] 28.9 pg (09/26/23: AM) MCHC [32-36 g/dL] 32.6 g/dL (09/26/23: AM) MCV [81-96 fL] 88.8 fL (09/26/23: AM) Na [137-145 mmol/L] 141 mmol/L (09/26/23 AM) Nitrite (u) [NEG] NEGATIVE *Unknown* (09/26/23 AM) Plts [150-350 K/uL] 177 K/uL (09/26/23: AM) RBC [4.40-5.60 M/uL] 5.08 M/uL (09/26/23: AM) T Bili [0.2-1.3 mg/dL] 0.7 mg/dL (09/26/23 7: AM) Prot [6.3-8.2 g/dL] 7.6 g/dL (09/26/23: AM) TG [<200 mg/dL] 83 mg/dL (09/26/23: AM) TSH [0.47-4.68 uIU/mL] 2.65 uIU/mL 6 (09/26/23: AM) Appear (u) CLEAR *Unknown* (09/26/23 AM) Color (u) YELLOW *Unknown* (09/26/23 AM) Creat (u) 154.56 mg/dL 7 (09/26/23 7: AM) Glu (u) [NEG mg/dL] NEGATIVE mg/dL (7/19/24 7:22 AM) Hgb (u) [NEG] NEGATIVE *Unknown* (09/26/23 7:22 AM) pH (u) [4.5-8.0 unit] 6.5 unit (09/26/23 7:22 AM) Prot (u) [NEG mg/dL] NEGATIVE mg/dL (09/26/23 7:22 AM) Urobili [0.1-1.0 EU/dL] 0.2 EU/dL (09/26/23 7:22 AM) SG [1.005-1.030] 1.020 (09/26/23 7:22 AM) WBC [4.0-10.4 K/uL] 5.34 K/uL (09/26/23 7:22 AM) 1Result Comment: Testing Performed By: Dept of Pathology [facility] Yasmani Contreras, [address] [place] [address], [place] [address] 2Result Comment: Testing Performed By: Dept of Pathology [facility] Yasmani Contreras, [address] [place] [address], [place] [address] 3Result Comment: Testing Performed By: Dept of Pathology [facility] Yasmani Contreras, [address] [place] [address], [place] [address] 4Result Comment: CHECKED 5Result Comment: Testing Performed By: Dept of Pathology [facility] Yasmani Contreras, [address] [place] [address], [place] [address] 6Result Comment: Testing Performed By: Dept of Pathology [facility] Yasmani Contreras, [address] [place] [address], [place] [address] 7Result Comment: Reference Range for Random Urine Not Established. Social History Social History Type Response Smoking Status Never smoker entered on: 09/25/23 Sex Patient Care team information Care Team Related Persons Name: AUGIE FRAIRE Address: home [address] [facility] [place] [id number]
--- OUTSIDE RECORDS SUMMARY | 2023-10-24 10:52 | External Medical Summary | Continuity of Care Document ---
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 Name Role Phone Markell Arechiga Primary Care Physician [phone] Encounter [facility] [id number] Date(s): 09/25/23 - 09/25/[address] [address] [phone] Encounter Diagnosis HTN (hypertension)(Discharge Diagnosis) - 09/25/23 EMILY (obstructive sleep apnea)(Discharge Diagnosis) - 09/25/23 Body mass index [BMI] 35.0-35.9, adult(Discharge Diagnosis) - 09/25/23 Snoring(Discharge Diagnosis) - 09/25/23 Screening PSA (prostate specific antigen)(Discharge Diagnosis) - 09/25/23 Witnessed apneic spells(Discharge Diagnosis) - 09/25/23 Lesion of nose(Discharge Diagnosis) - 09/25/23 Murmur(Discharge Diagnosis) - 09/25/23 Family history of aortic aneurysm(Discharge Diagnosis) - 09/25/23 LBBB (left bundle branch block)(Discharge Diagnosis) - 09/25/23 Colon polyp(Discharge Diagnosis) - 09/25/23 Discharge Disposition: Home or Self Care Attending Physician: DO Saleh Allison B Allergies, Adverse Reactions, Alerts No Known Allergies Assessment and Plan Extracted from: Title:Office Visit Note Author:DO Saleh Allis on B Date:09/25/23 1.HTN (hypertension) Uncontrolled HTN. Suspect ongoing hypertension for years due to history. Repeat blood pressure 160/100. Will start Olmesartan 20mg once a day. Blood work pending.Side effects of medication discussed. EKG demonstrated NRS with LBBB. No previous EKGs in the past. Patient is asymptomatic.He reports that he has old EKGs to compare. Willstill like to get him set up with cardiology due to the new murmur, left bundle branch block and elevated blood pressure. 2.EMILY (obstructive sleep apnea) Suspect sleep apnea. Home sleep study pending. 3.Body mass index [BMI] 35.0-35.9, adult Diet and exercise. HbA1c pending. 4.Snoring Home sleep study pending. 5.Screening PSA (prostate specific antigen) PSA screening. 6.Witnessed apneic spells Home sleep test ordered. Continue to monitor symptoms. 7.Murmur New murmur. Unclear etiology. Need improved blood pressure control.Suspect ontreated sleep apnea and will evaluate for pulmonary hypertension. 8.Lesion of nose To Dermatology for skin screening. Needs full body skin check. 9.Family history of aortic aneurysm Per patient his father and his paternal grandfather hadaortic aneurysms. He reports that he was checked by his previous PCP in the past and he states that hisaorta was normal. Would like to get records for review. 10.LBBB (left bundle branch block) EKG performed for HTN and new murmur.To cardiology. Patient asymptomatic. 11.Colon polyp Patient reports that his last colonoscopy was in 2021. Will obtain recordsfor follow-up. He states a history of polyps. Fasting blood work pending. Need old records for review. Recommend home monitoring blood pressure. Call the officeif blood pressures greater [id number]/120 or he is asymptomatic. He should go to the ER with any symptoms. We discussed symptoms. He is in agreement. Side effects of medication discussed. Return to the office in 2 weeks or sooner as needed. Immunizations Given and Recorded Vaccine Date Status [...] Daily, Disp# 30 tab, Refills: 1, Pharmacy: [id number] Start Date: 09/25/23 Stop Date: 11/24/23 Status: Ordered Osteo Bi-Flex Start: 05/26/14 8:37:00 AM EDT Start Date: 05/26/14 Status: Ordered Mental Status 09/25/23 Barriers to Learning one year None evide nt Mandatory Health Literacy Documentation Yes Health Literacy Communication Barriers N ever Primary Language Malay Problem List Condition Confirmation Course Effective Dates [...] Colon polyp Confirmed Active Snoring Confirmed Active Diagnosis Diagnosis Type Effective Dates Health Status Cl inical Service Informant HTN (hypertension) Discharge Diagnosis 09/25/23 Non-Specified Lesion of nose Discharge Diagnosis 09/25/23 Non-Specified Witnessed apneic spells Discharge Diagnosis 09/25/23 Non-Specified Snoring Discharge Diagnosis 09/25/23 Non-Specified Murmur Discharge Diagnosis 09/25/23 Non-Specified Body mass index [BMI] 35.0-35.9, adult Discharge Diagnosis 09/25/23 Non-Specified EMILY (obstructive sleep apnea) Discharge Diagnosis 09/25/23 Non-Specified Screening PSA (prostate specific antigen) Discharge Diagnosis 09/25/23 Non-Specified LBBB (left bundle branch block) Discharge Diagnosis 09/25/23 Non-Specified Colon polyp Discharge Diagnosis 09/25/23 Non-Specified Family history of aortic aneurysm Discharge Diagnosis 09/25/23 Non-Specified Procedures Procedure Date Related Diagnosis Body Site Status Arthroscopy of knee 01/26/15 Compl eted Colonoscopy 1 04/13/13 Completed Fracture care Completed Left ankle Completed 1next exam due in 3 years Vital Signs Most recent to oldest [Reference Range]: 1 Height 188.5 cm (09/25/23 8:31 AM) Patient Weight 125.6 kg (09/25/23 8:31 AM) Body Mass Index 35.35 kg/m2 (09/25/23 8:31 AM) Temperature [36.5-37.9 DegC] 36.9 DegC (09/25/23 8:31 AM) Heart Rate 79 bpm (09/25/23 8:31 AM) Respiratory Rate 18 br/min (09/25/23 8:31 AM) Blood Pressure 168/102mmHg (09/25/23 8:31 AM) Cuff Pulse Pressure 66 mmHg (09/25/23 8:31 AM) Social History Social History Type Response Smoking Status Never smoker entered on: 09/25/23 Sex Cardiology * Contributor_system, [id number]: VERIFY, PERFORM Event Display: EKG Authored Date: Please click on link to see image. FCM Outpt Note * DO Saleh Allison B: PERFORM Event Display: FCM Outpt Note Authored Date: [id number] Chief Complaint New pt view. Pt states " told him he stops breathing while he sleeps." Concerned with possible HTN. History of Present Illness Patient is a 58-year-old male who presents to the office for a new patient acute visit. He was previouslyfollowing with Dr. Arechiga. He reports that he was last seen by a physician prior to 2019. Past medical history, past surgical history, family history reviewed and updated. Patient had previously been in the , [employer]. He states that he was told he had high blood pressure at that time. [facility] [facility] Hest[facility] that his physical prior to [facility] was told his blood pressure was elevated. He has hadmultiple colonoscopy starting at the age of 38 for polyps in his family. He stateshis last colonoscopy was in 2021 and he believes that he is due in 5 years. Would like to get theseresults for review. Reports that his is concerned about his snoring. Shestates that he stops breathing at night. He has never had a sleep test. He denies any complaints today. He denies any fevers, chills, chest pain, shortness breath, lowerextremity edema. He denies any headaches or dizziness. He states that he is up-to-date with hiseye exam. He wears contacts. He reportsthat he has never hadmedications for blood pressure. He reports that he has checked his blood pressure at home andreports that he has been in the 130s to 170s over 70s to 90s. Hereports that he was diagnosed withsituational hypertension. Review of Systems Constitutional: No fever, No chills, No fatigue._ Respiratory: No shortness of breath, No cough, No wheezing. _ Cardiovascular: no lightheadedness/presyncope, No chest pain, No palpitations._ Gastrointestinal: No nausea, No vomiting, No diarrhea, No constipation, No heartburn, No abdominal pain._ Musculoskeletal: No back pain, No neck pain, No joint pain, No muscle pain, No decreased range ofmotion, No trauma._ Skin: No rash, No pruritus, No breakdown._ Neurologic:No abnormal balance, No numbness, No tingling, No headache._ Physical Exam Vitals & Measurements T:36.9C HR:79(Monitored) RR:18 BP:168/102 SpO2:94% HT:188.5cm WT:125.600kg(Dosing) WT:125.6kg BMI:35.35 PHQ2 Data(Data Documented on:09/25/2023 08:31) Emotional health assessment NEGATIVE General: _Alert and oriented, No acute distress HEENT: _ Normocephalic, TM clear, Nl gross hearing, moist oral mucosa _ Cardiovascular: _Normal rate, Regular rhythm, III/ murmur, No gallop. Respiratory: _Lungs are clear to auscultation, Respirations are non-labored, Breath sounds are equal Gastrointestinal: _Soft, Non-tender, Non-distended, Normal bowel sounds. Musculoskeletal: _Normal range of motion,normal strength. Neurologic:Normal sensory, Normal motor function, CN II-XII grossly intact. Integumentary: _Warm, Dry, [place]. Lesion on the nose Psych: Mood-affect congruence. Reports no SI/HI. Speech is of normal pace and content Assessment/Plan 1.HTN (hypertension) Uncontrolled HTN. Suspect ongoing hypertension for years due to history. Repeat blood pressure 160/100. Will start Olmesartan 20mg once a day. Blood work pending.Side effects of medication discussed. EKG demonstrated NRS with LBBB. No previous EKGs in the past. Patient is asymptomatic.He reports that he has old EKGs to compare. Willstill like to get him set up with cardiology due to the new murmur, left bundle branch block and elevated blood pressure. 2.EMILY (obstructive sleep apnea) Suspect sleep apnea. Home sleep study pending. 3.Body mass index [BMI] 35.0-35.9, adult Diet and exercise. HbA1c pending. 4.Snoring Home sleep study pending. 5.Screening PSA (prostate specific antigen) PSA screening. 6.Witnessed apneic spells Home sleep test ordered. Continue to monitor symptoms. 7.Murmur New murmur. Unclear etiology. Need improved blood pressure control.Suspect ontreated sleep apnea and will evaluate for pulmonary hypertension. 8.Lesion of nose To Dermatology for skin screening. Needs full body skin check. 9.Family history of aortic aneurysm Per patient his father and his paternal grandfather hadaortic aneurysms. He reports that he was checked by his previous PCP in the past and he states that hisaorta was normal. Would like toget records for review. 10.LBBB (left bundle branch block) EKG performed for HTN and new murmur.To cardiology. Patient asymptomatic. 11.Colon polyp Patient reports that his last colonoscopy was in 2021. Will obtain recordsfor follow-up. He states a history of polyps. Fasting blood work pending. Need old records for review. Recommend home monitoring blood pressure. Call the officeif blood pressures greater [id number]/120 or he is asymptomatic. He should go to the ER with any symptoms. We discussed symptoms. He is in agreement. Side effects of medication discussed. Return to the office in 2 weeks or sooner as needed. Problem List/Past Medical History Ongoing Body mass index [BMI] 35.0-35.9, adult Colon polyp Family history of aortic aneurysm HTN (hypertension) LBBB (left bundle branch block) Lesion of nose Murmur EMILY (obstructive sleep apnea) Screening PSA (prostate specific antigen) Snoring Witnessed apneic spells Procedure/Surgical History Arthroscopy of knee| Service Date: 01/26/2015Colonoscopy| Service Date: 04/13/2013Left ankleFracture care Medications chondroitin-glucosamine(Chondroitin-Glucosamine), 1 cap, PO, Daily chondroitin-glucosamine(Osteo Bi-Flex) multivitamin with minerals(Centrum Men's), 1 tab, PO, Daily olmesartan(olmesartan 20 mg oral tablet), 20 mg= 1 tab, PO, Daily, 1 refills omega-3 polyunsaturated fatty acids(10X10 Room Bounty Red Krill Oil), 1000 mg, PO, bid Allergies NKA Social History Smoking Status Never smoked cigarettes Alcohol - Denies Alcohol Use 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 Hypertension: Mother. Health Status Family Member(s) Immunizations Vaccine Date Status zoster vaccine, inactivated 02/27/2022 Recorded SARS-CoV-2 mRNA-1273 (6y+ bivalent) 02/27/2022 Recorded SARS-CoV-2 (COVID-19) mRNA-1273 vaccine 07/13/2021 Recorded Comments : 2021-07-16: Historical information-source unspecified SARS-CoV-2 (COVID-19) mRNA-1273 vaccine 01/31/2021 Recorded Comments : 2021-02-02: Historical information-source unspecified SARS-CoV-2 (COVID-19) mRNA-1273 vaccine 07/13/2020 Recorded SARS-CoV-2 (COVID-19) mRNA-1273 vaccine 06/15/2020 Recorded influenza virus vaccine, inactivated 12/18/2019 Recorded influenza virus vaccine, inactivated 01/09/2019 Recorded Recommendations Health Maintenance Pending(in the next year) Due Adult Influenza Vaccine due09/07/23and every 1year Satisfied(in the past 1 year) There are no satisfied recommendations within the defined date range Electronic Signature on File Electronically Reviewed/Signed by: Mone Saleh DO Author Signature Dt/Tm:09/25/2023 09:47 AM Department of Family Medicine [facility] Patient Care team information Care Team Related Persons Name: AUGIE FRAIRE Address: [address] [place] [id number]
[2023-10-24] MEDS: ATORVASTATIN 40 MG TAB PO SCH (10:58)
[2023-10-24 11:06] LABS: ANTI-Xa, UFH(UnfractionatedHep 0.13 IU/ml (0.3-0.7)
--- NOTE | 2023-10-24 13:44 | Pre Anesthesia Assessment ---
Date of Service October 24, 2023 Pre Sedation Assessment Vital Signs Temp Pulse Pulse Resp BP BP BP 10/24/23 13:38 78 16 201/108 H 10/24/23 11:10 98.6 F 74 20 170/98 H 10/24/23 08:00 66 10/24/23 07:06 98.1 F 67 20 157/92 H 10/24/23 06:00 10/24/23 06:00 98.1 F 67 16 158/85 H 10/24/23 05:00 73 18 170/93 H 10/24/23 04:00 59 L 18 172/96 H 10/24/23 03:04 10/24/23 02:45 70 10/24/23 02:45 67 10/24/23 02:33 160/94 H 10/24/23 02:31 64 20 168/91 H 10/24/23 02:27 74 10/24/23 02:12 55 L 11 L 10/24/23 02:02 168/91 H 10/24/23 02:00 52 L 12 10/24/23 01:59 54 L 10/24/23 01:58 52 L 10/24/23 01:52 97.9 F 54 L 18 184/102 H Pulse Ox O2 Del Method O2 Flow Rate 10/24/23 13:38 95 Room Air 10/24/23 11:10 97 Room Air 10/24/23 08:00 10/24/23 07:06 92 Room Air 10/24/23 06:00 Room Air 10/24/23 06:00 95 Room Air 10/24/23 05:00 94 Room Air 10/24/23 04:00 97 Nasal Cannula 3 10/24/23 03:04 87 L Room Air 10/24/23 02:45 93 Nasal Cannula 3 10/24/23 02:45 88 L Room Air 10/24/23 02:33 10/24/23 02:31 95 Room Air 10/24/23 02:27 94 10/24/23 02:12 94 10/24/23 02:02 10/24/23 02:00 10/24/23 01:59 10/24/23 01:58 10/24/23 01:52 95 Room Air Cardiovascular + regular rate Respiratory + respiratory effort normal Pre-Sedation Airway Assessment Smoking Status: Never smoker Hx Sleep Apnea: No Hx Difficult Intubation: No Short, Thick Neck: Yes Thyromental Distance: > or= 3.5 Finger Breadths Oral Cavity: + WNL Mallampati Class: II ASA: ASA3 NPO Status Date of Last Intake of Fluids: 10/23/23 Time of Last Intake of Fluids: 19:00 Date of Last Intake of Solid Food: 10/23/23 Time of Last Intake of Solid Foods: 19:00 Procedure Planning Contraindications for Sedation: none Current Medications Reviewed: Yes Notes The planned sedation has been discussed with the patient. Informed Consent was obtained. I have identified the patient, determined the appropriateness of sedation and have assessed the patient immediately prior to the procedure. All medicine(s) and interventions are by my order.
[2023-10-24] MEDS: niCARdipine HCL INJ 2.5 MG/ML 10 ML AMP ONE (14:14)
[2023-10-24] MEDS: NITROGLYCERIN/D5W 100MCG/ML 20ML SYR ONE (14:15)
[2023-10-24] MEDS: HEPARIN (PORCINE) 1000 UNIT/ML 10 ML (CATH LAB USE ONLY) ONE (14:44)
[2023-10-24] MEDS: MIDAZOLAM HCL 1 MG/ML 2ML VIAL ONE (14:45)
[2023-10-24] MEDS: OPTIRAY 350 ONE (14:51)
[2023-10-24] MEDS: fentaNYL citrate PF 100 MCG/2 ML VIAL ONE (14:51)
--- NOTE | 2023-10-24 15:07 | Post Anesthesia Assessment ---
Date of Service October 24, 2023 Post Sedation Assessment Vital Signs Temp Pulse Pulse Resp BP BP BP 10/24/23 13:38 78 16 201/108 H 10/24/23 11:10 98.6 F 74 20 170/98 H 10/24/23 08:00 66 10/24/23 07:06 98.1 F 67 20 157/92 H 10/24/23 06:00 10/24/23 06:00 98.1 F 67 16 158/85 H 10/24/23 05:00 73 18 170/93 H 10/24/23 04:00 59 L 18 172/96 H 10/24/23 03:04 10/24/23 02:45 70 10/24/23 02:45 67 10/24/23 02:33 160/94 H 10/24/23 02:31 64 20 168/91 H 10/24/23 02:27 74 10/24/23 02:12 55 L 11 L 10/24/23 02:02 168/91 H 10/24/23 02:00 52 L 12 10/24/23 01:59 54 L 10/24/23 01:58 52 L 10/24/23 01:52 97.9 F 54 L 18 184/102 H Pulse Ox O2 Del Method O2 Flow Rate 10/24/23 13:38 95 Room Air 10/24/23 11:10 97 Room Air 10/24/23 08:00 10/24/23 07:06 92 Room Air 10/24/23 06:00 Room Air 10/24/23 06:00 95 Room Air 10/24/23 05:00 94 Room Air 10/24/23 04:00 97 Nasal Cannula 3 10/24/23 03:04 87 L Room Air 10/24/23 02:45 93 Nasal Cannula 3 10/24/23 02:45 88 L Room Air 10/24/23 02:33 10/24/23 02:31 95 Room Air 10/24/23 02:27 94 10/24/23 02:12 94 10/24/23 02:02 10/24/23 02:00 10/24/23 01:59 10/24/23 01:58 10/24/23 01:52 95 Room Air Recovery Score Activity: Moves 4 extremities Respiration: Deep Breath/Cough Circulation: +/-20% PreAnes Value Consciousness: Fully Awake Oxygen Saturation: O2 needed for >90% Discharge Sedation Level of Care: Fast Track Phase II Post Sedation Plan On clinical assessment, the patient appears to have tolerated the sedation without complications. Patient is recovering as anticipated. Patient will continue to be monitored by nursing and may be discharged when sedation discharge criteria are met per below protocol. Upon Completions of procedure up to 15 minutes continue every 5 minute vital signs and the P.A.R. score; then discharge to a Phase I or Fast Track to Phase II per the following guidelines: * Discharge Patient to appropriate Phase II area if PAR is 8 or greater or return to pre- procedure baseline. The post - procedure orders will be as directed. * If PAR score is less than 8 or not return to pre-procedure baseline then patient will follow Phase I monitoring till PAR is reached for Phase II. The Phase I may be done in procedure room or may call to secure a Phase I area. * If naloxone or flumazenil are used for reversal, hold in Phase I for continued monitoring from when last reversal dose was given for a minimum of 60 minutes or longer pending the nurse and/or physician discretion of patient condition before discharge to Phase II. Please call the Sedation Physician to re-evaluate and complete post-note for discharge to Phase II area. Do NOT discharge from procedure sedation or Phase 1 until post- sedation evaluation note is complete by procedure /sedation MD Sedation Discharge Instructions to be given to the patient at discharge to home.
[2023-10-24] MEDS: LABETALOL HCL IV 5 MG/ML 20ML IV ONE (15:12)
--- NOTE | 2023-10-24 15:13 | Cardiac Catheterization ---
[facility] Data: [facility] Cardiac Status Clinical evaluation leading to the procedure CAD Presenation: Non STEMI Anginal Classification: CCS IV Diagnostic Physicians Name: Lenny Narayanan MD Closure Device Recommendations: Medical Therapy and/or Counseling Cardiac Cath Procedure Full Procedure Date October 24, 2023 Pre-Procedure Diagnosis Pre-Procedure Diagnosis: Non STEMI AUC Score AUC Score: 8 Post-Procedure Diagnosis Post-Procedure Diagnosis: Severe CAD, Successful PCI and Normal Intracardiac Pressures Procedure(s) Performed Procedure(s) Performed: Coronary Angiography, Left Heart Cath and Drug Eluting Stent Maintenance Person Lenny Narayanan MD Tube Man(s) Sivakumar Estimated Blood Loss Estimated Blood Loss: 15 Medication(s) Medication(s): Fentanyl, Heparin, Lidocaine 1%, Nicardipine, Nitroglycerin and Versed Medication(s): Ticagrelor Summary of Findings Indication: NSTEMI Access: 6 Fr slender right radial artery Catheters: [place], JR4 guide Findings: LM -normal caliber, no significant disease LAD -large caliber, proximal 30-40% stenosis, mid segment with 40% stenosis and myocardial bridging. Distal vessel without significant disease. Smallmedium caliber D1 with 30% proximal disease. Small D2 without disease. Circumflex -large caliber, 30% mid segment disease RCA -dominant, large caliber, acute 98% distal stenosis prior to right PLB LVEDP -17 -- PCI -- Antithrombotic therapy: Heparin, ticagrelor Procedure: RCA cannulated with JR4 guide Pre-procedure flow NILESH 2-3 Sign Designer 50 wire passed across lesion into distal vessel GuideLiner placed in proximal RCA Distal RCA lesion predilated with 2.5 compliant balloon Dilated lesion stented with 3.0 x 18 mm [place] drug-eluting stent Stent post-dilated with 3.25 noncompliant balloon IC vasodilators administered for spasm Post procedure NILESH 3 flow, stent well expanded with minimal residual stenosis and no apparent cardiac complications. Arterial Closure: TR band Summary: 1. Severe single vessel coronary artery disease -Acute 98% distal RCA 20-30% proximal, 40% mid LAD 30% mid circumflex 2. Normal intracardiac filling pressure 3. Successful PCI of distal RCA with single drug-eluting stent (3.0 x 18 mm [place]; postdilated with 3.25 NC). Recommendations: To PCU for continued monitoring Loaded with ticagrelor 180 mg prior to procedure Continue dual-antiplatelet therapy for at least 1 year Continue statin, and ASCVD risk factor modification Consult cardiac Rehab Hemodynamics Rest Ao:: 148/89/113 Final Ao: 120/82/99 LV: 117/17 Recommendations Recommendations: Medical Therapy and/or Counseling Radiation Exposure (mGy) 2825 Contrast (mls) 140 Anesthesia Moderate [address] Procedural Complication(s) None Disposition [facility] Holding/Recovery I attest to the content of the Intraoperative Record and any orders documented therein. Any exceptions are noted below. [facility] Card Cath Procedure Codes Cardiac Catheterization Procedure 1: Cardiovascular Cath Procedures: 61278 Coronaries and LHC (+/-LV) Moderate Sedation Procedure 1: Sedation/Anesthesia: 93708 Mod Sedation by the same physician;Init15 Min Child Age 5 & Up Procedure 2: Sedation/Anesthesia: 42399 Mod Sedation by the same physician; Ea [id number] Minutes Stenting Procedure 1: Cardiovascular Stent Procedures: 56584 Perc transcatheter placement of intracoronary stent(s), with ang PG Care Time/CCT Total # of Minutes Spent Total Time Spent with Patient: Total time spent is greater than 50% in coordination of care (as documented) at patient's floor/unit and/or counseling patient:
--- NOTE | 2023-10-24 15:27 | Electrocardiogram Report ---
Test Reason : Blood Pressure : */* mmHG Vent. Rate : 50 BPM Atrial Rate : 50 BPM P-R Int : 170 ms QRS Dur : 106 ms QT Int : 474 ms P-R-T Axes : 50 27 122 degrees QTcB Int : 432 ms Sinus bradycardia Abnormal ECG No previous ECGs available Confirmed by Yony Marie ([id number]) on 10/24/2023 3:26:59 PM Referred By: REFERRED SELF Confirmed By: Yony Marie
--- NOTE | 2023-10-24 15:27 | Electrocardiogram Report ---
Test Reason : Blood Pressure : */* mmHG Vent. Rate : 63 BPM Atrial Rate : 63 BPM P-R Int : 170 ms QRS Dur : 174 ms QT Int : 472 ms P-R-T Axes : 51 19 90 degrees QTcB Int : 483 ms Normal sinus rhythm Left bundle branch block Abnormal ECG When compared with ECG of 24-Oct-2023 01:57, (unconfirmed) Left bundle branch block is now Present Confirmed by Yony Marie ([id number]) on 10/24/2023 3:27:47 PM Referred By: REFERRED SELF Confirmed By: Yony Marie
--- NOTE | 2023-10-24 15:28 | Electrocardiogram Report ---
Test Reason : Blood Pressure : */* mmHG Vent. Rate : 72 BPM Atrial Rate : 72 BPM P-R Int : 174 ms QRS Dur : 172 ms QT Int : 448 ms P-R-T Axes : 42 16 98 degrees QTcB Int : 490 ms Normal sinus rhythm Left bundle branch block Abnormal ECG When compared with ECG of 24-Oct-2023 02:21, (unconfirmed) No significant change was found Confirmed by Yony Marie ([id number]) on 10/24/2023 3:27:53 PM Referred By: REFERRED SELF Confirmed By: Yony Marie
--- NOTE | 2023-10-24 15:54 | Hospitalist Progress Note ---
Date of Service October 24, 2023 Assessment & Plan (1) Chest pain: Plan: - pt with sudden onset of chest pain during sleep; no hx of previous NM/ACS - first EKG showing NSR w/ mild ST segment elevations in the inferior leads and T wave inversions in anterolateral leads; repeat EKGs showing LBBB and resolution of ST/T changes - Patient chest pain resolved after Nitro x2 in ED - lab work significant for no leukocytosis, Hgb 14, plts 181, K 3.6, Cr 1.01, and lyme screen neg - D dimer elevated to 820; CTA PE protocol ordered - trop increased from 11 to 138 to 1215 - Patient s/p PCI and ROB in RCA 98% stenosed 10/23 - Will continue patients ASA, Brillinta, statin, ARB, BB, prn Nitro, and heparin (2) Left bundle branch block: Plan: - pt has hx of LBBB on prior EKGs including one from outpatient records 09/2023 and per pt back in 2021 prior to a colonoscopy (3) Hypertension: Plan: - continue formulary equivalent losartan 100 mg daily of pt's home med (olmesartan 40 mg daily) Plan Diet: NPO until further eval by cardio in case of urgent cath Code: full VTE ppx: heparin drip Dispo: admit to PCU Admission and Anticipated Discharge Date Admission Date: October 24, 2023 Supervising Physician Co-Signing Physician Notes I personally examined the patient and verified all powell points of history and exam, discussed case, and agree with decision making with Dr Darden feeling OK now. eats quite healthy. exercises 4-7 days a week although weights > cardio vitals noted nad heent nc at mmm breathing unlabored no accessory muscles good effort skin no rashes no pallor or icterus ACS/NSTEMI/CAD - stable. med management. healthy lifestyle. hopefully home tomorrow otherwise as above Subjective Renan Figueroa is a 58 y/o M with a past medical history of HTN who arrived to the ED with 2 hours of 3-4/10 chest pain and heaviness. In the ED patient received ASA 324 mg, Nitro x2, 1L NS IV fluids, and heparin drip, and patient's pain resolved. EKG showed LBBB and ST elevation/T wave inversions in anterolateral leads, repeat EKG showed LBBB without ST changes. Initial high sensitivity troponin was 11, repeat was 138, and most recent was 1215.1. Patient underwent cath with PCI and ROB in RCA that was 98% stenosed. Today patient does not report any acute complaints or concerns when seen. Patient denies fever, chills, chest pain/palpitations/tightness, SOB/cough/wheeze, headache, edema, abdominal pain, nausea, or vomiting. Physical Exam Physical Exam: General: patient resting comfortably, NAD, non-toxic in appearance, answers questions appropriately. Skin: warm, dry, intact HEENT: NC/AT, anicteric sclera, conjunctiva without injection, moist mucus membranes. Heart: +S1/S2, regular, no m/r/g Lungs: equal air entry bilaterally, no rales/rhonchi/wheezes Abd: +BS, soft, NT/ND Ext: warm, no clubbing/cyanosis or edema, Jamilah's neg. Neuro: nonfocal, speech intact, no facial droop, moving all extremities. Results & Data Results & Data Vital Signs (Past 12 Hours) Vital Signs Temp Pulse Pulse Resp BP BP Pulse Ox 10/24/23 15:15 78 16 187/103 H 92 10/24/23 15:09 74 10/24/23 15:00 78 16 198/115 H 95 10/24/23 13:38 78 16 201/108 H 95 10/24/23 11:10 37.0 C 74 20 170/98 H 97 10/24/23 08:00 66 10/24/23 07:06 36.7 C 67 20 157/92 H 92 10/24/23 06:00 10/24/23 06:00 36.7 C 67 16 158/85 H 95 10/24/23 05:00 73 18 170/93 H 94 10/24/23 04:00 59 L 18 172/96 H 97 O2 Del Method O2 Flow Rate 10/24/23 15:15 Room Air 10/24/23 15:09 10/24/23 15:00 Room Air 10/24/23 13:38 Room Air 10/24/23 11:10 Room Air 10/24/23 08:00 10/24/23 07:06 Room Air 10/24/23 06:00 Room Air 10/24/23 06:00 Room Air 10/24/23 05:00 Room Air 10/24/23 04:00 Nasal Cannula 3 Resident Activity Tracking Resident Involvement: Resident Care Provided Care Provided: Adult Hospital Medicine (1) Chest pain Chest pain type: chest pain due to myocardial ischemia Ischemic chest pain type: unspecified angina pectoris type Qualified Code(s): I25.9 - Chronic ischemic heart disease, unspecified (3) Hypertension Hypertension type: unspecified Qualified Code(s): I10 - Essential (primary) hypertension
[2023-10-24] MEDS: carvediloL 6.25 MG TAB PO SCH (16:21)
[2023-10-24] MEDS: SODIUM CHLORIDE 0.9% 1,000 ML IV SCH (16:21)
[2023-10-24 17:25] LABS: Estimated Average Glucose 120 mg/dl; Hemoglobin A1C 5.8 % (4.5-5.6)
--- NOTE | 2023-10-24 18:17 | Billing Data ---
Date of Service October 24, 2023 Coding Level of Care Code 95958 SUB INP/OBS CARE MIN
[2023-10-24] MEDS: TICAGRELOR 90 MG TAB PO SCH (21:06)
--- NOTE | 2023-10-24 23:00 | XCELERA ---
[id number]
[2023-10-25 07:33] LABS: BUN Creatinine Ratio 16.1 (10-20); Calcium 8.5 mg/dl (8.6-10.3); Chol HDL Ratio 4.6 (0-5); Creatinine Clr Calc Pharmacy 113.7 ml/min; Est GFR (African American) 109.5 ml/min; Est GFR (Non-African American) 94.5 ml/min; Potassium 3.7 mmol/L (3.5-5.1)
--- NOTE | 2023-10-25 08:18 | Electrocardiogram Report ---
Test Reason : Blood Pressure : */* mmHG Vent. Rate : 76 BPM Atrial Rate : 76 BPM P-R Int : 162 ms QRS Dur : 164 ms QT Int : 444 ms P-R-T Axes : 39 10 39 degrees QTcB Int : 499 ms Normal sinus rhythm Left bundle branch block Abnormal ECG When compared with ECG of 24-Oct-2023 02:50, No significant change was found Confirmed by Aleksander Rehman ([id number]) on 10/25/2023 8:17:53 AM Referred By: REFERRED SELF Confirmed By: Aleksander Rehman
--- NOTE | 2023-10-25 08:53 | Hospitalist Progress Note ---
Date of Service October 25, 2023 Assessment & Plan (1) Chest pain: Plan: - pt with sudden onset of chest pain during sleep; no hx of previous [place]/ACS - first EKG showing NSR w/ mild ST segment elevations in the inferior leads and T wave inversions in anterolateral leads; repeat EKGs showing LBBB and resolution of ST/T changes - Patient chest pain resolved after Nitro x2 in ED - lab work significant for no leukocytosis, Hgb 14, plts 181, K 3.6, Cr 1.01, and lyme screen neg - D dimer elevated to 820; CTA PE protocol ordered - trop increased from 11 to 138 to 1215 - Patient s/p PCI and ROB in RCA 98% stenosed 10/23 - Will continue patients ASA, Brillinta, statin, ARB, BB, prn Nitro, and heparin (2) Left bundle branch block: Plan: - pt has hx of LBBB on prior EKGs including one from outpatient records 09/2023 and per pt back in 2021 prior to a colonoscopy (3) Hypertension: Plan: - continue formulary equivalent losartan 100 mg daily of pt's home med (olmesartan 40 mg daily) Plan Diet: NPO until further eval by cardio in case of urgent cath Code: full VTE ppx: heparin drip Dispo: admit to PCU Admission and Anticipated Discharge Date Admission Date: October 24, 2023 Ted Figueroa is a 58 y/o M with a past medical history of HTN who arrived to the ED with 2 hours of 3-4/10 chest pain and heaviness. In the ED patient received ASA 324 mg, Nitro x2, 1L NS IV fluids, and heparin drip, and patient's pain resolved. EKG showed LBBB and ST elevation/T wave inversions in anterolateral leads, repeat EKG showed LBBB without ST changes. Initial high sensitivity troponin was 11, repeat was 138, and most recent was 1215.1. Patient underwent cath with PCI and ROB in RCA that was 98% stenosed. Today patient does not report any acute complaints or concerns when seen. Patient denies fever, chills, chest pain/palpitations/tightness, SOB/cough/wheeze, headache, edema, abdominal pain, nausea, or vomiting. Physical Exam Physical Exam: General: patient resting comfortably, NAD, non-toxic in appearance, answers questions appropriately. Skin: warm, dry, intact HEENT: NC/AT, anicteric sclera, conjunctiva without injection, moist mucus membranes. Heart: +S1/S2, regular, no m/r/g Lungs: equal air entry bilaterally, no rales/rhonchi/wheezes Abd: +BS, soft, NT/ND Ext: warm, no clubbing/cyanosis or edema, Jamilah's neg. Neuro: nonfocal, speech intact, no facial droop, moving all extremities. ENMT: Mallampati Class: II Respiratory: normal respiratory effort Cardiovascular: Rate/Rhythm: regular rate Results & Data Results & Data Vital Signs (Past 12 Hours) Vital Signs Temp Pulse Pulse Resp BP Pulse Ox O2 Del Method 10/25/23 07:56 36.7 C 62 18 157/89 H 97 Room Air 10/25/23 02:59 62 16 141/85 H 95 Room Air 10/25/23 00:12 61 10/24/23 22:53 36.4 C L 64 16 159/84 H 95 Room Air (1) Chest pain Chest pain type: chest pain due to myocardial ischemia Ischemic chest pain type: unspecified angina pectoris type Qualified Code(s): I25.9 - Chronic ischemic heart disease, unspecified (3) Hypertension Hypertension type: unspecified Qualified Code(s): I10 - Essential (primary) hypertension
--- NOTE | 2023-10-25 13:33 | Cardiology Progress Note ---
Date of Service October 25, 2023 Assessment & Plan (1) ACS (acute coronary syndrome): Plan: --post PCI to distal RCA --mild nonculprit disease 2. Preserved LV function 3. Hypertension 4. Dyslipidemia 5. LBBB Stable from a cardiac standpoint. CP free. No access site complications. OK with discharge today. Home on: -- DAPT with ASA/Ticagrelor -- Current carvedilol, prior home losartan -- New atorvastatin 80mg daily Plans to follow-up with Dr Robles for future cardiac care. Discussed cardiac rehab. Admission and Anticipated Discharge Date Admission Date: October 24, 2023 Subjective Feeling well today. No chest pain. No shortness of breath. Telemetry reviewed -- no events. Review of Systems Review of Systems: All systems reviewed & are unremarkable except as noted in HPI & below Physical Exam Physical Exam: General: Comfortable HEENT: Sclerae anicteric Lungs: Clear to auscultation bilaterally, no crackles or wheezes Cardiac: Regular rate and rhythm, no murmurs. Vascular: 2+ RT radial pulse. No hematoma. Abdomen: Soft, nontender Extremities: Well perfused, no peripheral edema Neuro: Nonfocal Psych: Alert orient x3, normal affect and mood Results & Data Vital Signs (Past 12 Hours) Vital Signs Temp Pulse Resp BP Pulse Ox O2 Del Method 10/25/23 11:23 98.2 F 72 18 138/76 96 Room Air 10/25/23 07:56 98.1 F 62 18 157/89 H 97 Room Air 10/25/23 02:59 62 16 141/85 H 95 Room Air PG Care Time/CCT Total # of Minutes Spent Total Time Spent with Patient: Total time spent is greater than 50% in coordination of care (as documented) at patient's floor/unit and/or counseling patient: Coding Level of Care Code 17647 SUB INP/OBS CARE 2/35MIN Diagnoses ACS (acute coronary syndrome) I24.9
--- NOTE | 2023-10-25 15:39 | Discharge Summary ---
Date of Service October 25, 2023 Admission HPI Per Admitting Provider Pt is a 58 yo male with PMH of HTN presenting d/t chest pain. Pt notes he awoke from sleep feeling feverish and with chest pain. He describes the chest pain as being central and near the bottom of this throat. It did not radiate anywhere and came with no associated symptoms (SOB, N/V, abdominal pain, lightheadedness/dizziness). He waited a few minutes to see if it would pass and when it didn't he decided to come to the ER. He has been following with his PCP for HTN and his BP medication was recently changed (increased from 20mg olmesartan to 40mg). He was instructed by his PCP to come to the ER if he experienced any chest pain. He has never had chest pain before. He denies any heart history aside from a known LBBB. He does note that both his father and a cousin on his father's side have had abdominal aortic aneurysms. However, he notes they both smoked and he does not. In the ER, pt was given aspirin 324mg, nitro x2, 1L NS, and started on a heparin drip. His chest pain resolved and has not recurred since receiving these medications. Admission Exam Per Admitting Provider Constitutional: NAD, vitals WNL aside from hypertension. Respiratory: CTA bilaterally. Non labored breathing. No rhonchi, wheezing, or crackles. Cardiovascular: RRR. 2/6 systolic murmur noted. No LE edema. Gastrointestinal (Abdomen): Nontender, +BS. No masses noted. Skin: No rashes or skin lesions noted. Neurologic: Sensation grossly intact. No FND appreciated. Psychiatric: Speech of normal pace and content. Mood and affect congruent. Principal Diagnosis New LBBB, heart attack Discharge Exam Constitutional: Alert and oriented, no acute distress Respiratory: CTA bilaterally. Non labored breathing. No rhonchi, wheezing, or crackles. Cardiovascular: RRR. 2/6 systolic murmur noted. No LE edema. Gastrointestinal (Abdomen): Nontender, +BS. No masses noted. Skin: No rashes or skin lesions noted. Neurologic: Nonfocal exam Discharge Data Allergies Allergy/AdvReac Type Severity Reaction Status Date / Time No Known Allergies Allergy Unverified 10/24/23 06:31 Consultations 10/24/23 03:05 ED Decision to Admit Stat 10/24/23 04:06 Consult Cardiology Routine Procedures Performed Operation Date: 10/24/23 13:00 Actual Procedures p Cineradiography w/Routine Exam - Lenny Narayanan MD s Cath, Left with Cors and Vent - Lenny Narayanan MD s Drug Eluting Stent SGl Vessel - Lenny Narayanan MD Ordered Studies 10/24/23 05:03 CT angio chest PE protocol Stat 10/24/23 10:00 CL Cath Imgs for PACS use only Routine 10/24/23 13:58 CL Cath Imgs for PACS use only Urgent Hospital Course (1) Chest pain: (2) Left bundle branch block: (3) Hypertension: Plan Pt is a 58 yo male with a past med hx of HTN only who presented to the hospital on 10/23 for chest pain, found to have LBBB and wall motion abnormality on echo, s/p cardiac cath on 10/23. #Acute coronary syndrome, LBBB in setting of chest pain, s/p cardiac cath - pt presented to hospital with sudden onset of chest pain during sleep; no hx of previous [place]/ACS - first EKG showing NSR w/ mild ST segment elevations in the inferior leads and T wave inversions in anterolateral leads; repeat EKGs showing LBBB and resolution of ST/T changes - pt has hx of LBBB on prior EKGs including one from outpatient records 09/2023 and per pt back in 2021 prior to a colonoscopy - trop increased from 11 to 138 to 1215 - echo done 10/23 showed LVEF 50-55% and abnormal septal wall motion - Patient s/p PCI on 10/23 and ROB in RCA 98% stenosed - per cardiology, to discharge on: * ASA + brillinta for DAPT * losartan 100 mg daily * atorvastatin 80 mg daily * carvedilol 6.25 mg BID Total Time Total Time Spent Total Time Spent (In Minutes): <30 Discharge Plan Discharge Items Patient Disposition: Home - Self-Care Reason For Visit: CHEST PAIN Discharge Diagnosis: Heart attack Activity: Per Instructions section Non-emergency contact: Primary Care Provider and Worker'S Compensation Claims Examiner Call non-emergency contact if: you have any medication questions, your symptoms worsen, your wound has increased redness and your wound has increased drainage Follow-up/Referrals: Mone Saleh DO [Primary Care Provider] - Diet: Heart Healthy Addtl Attending Provider Instructions: You were admitted to the hospital for a heart attack (also called a myocardial infarction.) You underwent a cardiac catheterization procedure and had 1 stent placed by our chief of safety and protection. Now, the important part is to continue the medications that cardiology recommend to protect the stent and prevent it from getting clogged, and to continue to be active and eat well. You should plan to do cardio exercises regularly (but as tolerated) to further strengthen the heart, and avoid fried, fatty, and processed foods, just like you have been doing already. The chief of safety and protection has recommend you go home on the following medication regime: * Aspirin 81 mg daily + Brilinta 90 mg twice daily for antiplatelet therapy to help stabilize the stent that was placed * Losartan 100 mg daily, this is for blood pressure but also is protective of heart tissue after a heart attack * Carvedilol 6.25 mg twice daily, this is for blood pressure but also is protective of heart tissue after a heart attack * Atorvastatin 80 mg daily, this is for stabilization of the stent that you have Please do not stop any of these medications without talking to your primary care physician or chief of safety and protection first. Also let them know if you have any issues getting or affording any of these medications. Please plan to follow up with cardiology in 1-2 weeks. Plan to follow up with your primary care physician at the start of this upcoming week, Friday or Friday. You will have ot call their office Friday morning to set up this appointment. Pending Studies at Discharge: No Stand-Alone Forms: My [facility] Medications and DC Order Prescriptions: New Brilinta 90 mg Tablet 90 mg PO BID 30 Days Qty: 60 1RF atorvastatin 40 mg Tablet 80 mg PO QAM 30 Days Qty: 60 1RF carvedilol 6.25 mg Tablet 6.25 mg PO BIDM 30 Days Qty: 60 1RF losartan 50 mg Tablet 100 mg PO QAM 30 Days Qty: 60 1RF aspirin 81 mg Tablet,Delayed Release (Dr/Ec) 81 mg PO QAM 30 Days Qty: 30 1RF Discharge Orders: Discharge Order (Routine); Ordered 10/25/23 Ordered By: Lisette Whaley Admission Data Admit Date/Time: 10/24/23 04:06 Attending Provider: Ramu Bell Admit Provider: Pretty Perez Primary Care Provider: Mone Saleh Other Providers: Aly Edmonds; Lenny Narayanan Other Interventions: Discharge Summary Assessment (RN) Last Done: 10/25/23 16:16 Supervising Physician Co-Signing Physician Notes I personally examined the patient and verified all powell points of history and exam, discussed case, and agree with decision making with Dr Whaley Feels good. Would like to go home. Case discussed with cardiologyinput greatly appreciated. vitals noted nad heent nc at mmm breathing unlabored no accessory muscles good effort skin no rashes no pallor or icterus ACS/NSTEMI/CAD - stable. med management. healthy lifestyle. Reiterated importance of medication adherence, again recommended a slight shift in his exercise to favor a bit more cardio. knee pain - will ask for referral to sports med otherwise as above Resident Activity Tracking Resident Involvement: Resident Care Provided Care Provided: Adult Hospital Medicine
[2023-10-25 15:48] VITALS: PULSE 66; RESP 20; TEMP 97.9; O2SAT 95
[2023-10-25 16:18] VITALS: BP 128/77
--- NOTE | 2023-10-25 17:38 | Billing Data ---
Date of Service October 25, 2023 Coding Level of Care Code 30157 IN/OBS DISCH 30 MIN/LESS
[2023-10-26] MEDS ORDERED: ATORVASTATIN 40 MG TAB PO SCH (09:00)
== END 2023-10-25 16:51 | disposition home or self-care (01) | DRG 322 ==
LOC: ED 01:48 → 2S 04:06 → SUATTDRO 04:06 → 2S 05:40